=== PATIENT | female | born 1950 | race Caucasian/White ===

== ENCOUNTER → 2018-01-14 | Outpatient (CLI) | payer MEDICARE ==
[~2018-01-14] VITALS: Ht 165.1 cm; Wt 64.1 kg
[~2018-01-14] MED LIST: BUPIVACAINE/PF-EPI 0.5% 1:200K ONE; HYDROcodone/APAP 5/325 TABLET ONE; LACTATED RINGERS 1,000 ML IV SCH; LISI-170 PO; NORCO PO
[2018-01-14 12:34] VITALS: BP 135/80
[2018-01-14 13:46] LABS: ALANINE AMINOTRANSFERASE 18 U/L (12-78); ALBUMIN 3.8 g/dL (3.4-5.0); ANION GAP 11 mmol/L (5-15); CALCIUM 9.2 mg/dL (8.5-10.1); CHLORIDE 109 mmol/L (98-107); CREATININE 0.69 mg/dL (0.55-1.02)
[2018-01-14 13:49] LABS: ALKALINE PHOSPHATASE 60 U/L (45-117); BILIRUBIN,TOTAL 0.5 mg/dL (0.2-1.0); TOTAL PROTEIN 7.5 g/dL (6.4-8.2)
== END | disposition home or self-care (01) ==
LOC: CLISVCS 05:00 → OUT 12:05 → EDSTATUS 13:45
PROVIDERS: ATTEND Orthopaedic Surgery
DX: S52.572A Other intraarticular fracture of lower end of left radius, initial encounter for closed fracture (principal); Z53.9 Procedure and treatment not carried out, unspecified reason; X58.XXXA Exposure to other specified factors, initial encounter; Y93.89 Activity, other specified; Y92.89 Other specified places as the place of occurrence of the external cause; Y99.8 Other external cause status
CPT/HCPCS: 36415; 80053; 93005; 97597; J7120

== ENCOUNTER → 2018-01-14 | Outpatient (CLI) | payer MEDICARE ==
[~2018-01-14] MED LIST changes: -BUPIVACAINE/PF-EPI 0.5% 1:200K ONE; -HYDROcodone/APAP 5/325 TABLET ONE; -LACTATED RINGERS 1,000 ML IV SCH
== END | disposition home or self-care (01) ==
LOC: CFH 14:50
PROVIDERS: ATTEND Orthopaedic Surgery
DX: S52.502A Unspecified fracture of the lower end of left radius, initial encounter for closed fracture (principal); C50.911 Malignant neoplasm of unspecified site of right female breast; Z87.891 Personal history of nicotine dependence; X58.XXXA Exposure to other specified factors, initial encounter; Y93.89 Activity, other specified; Y92.89 Other specified places as the place of occurrence of the external cause; Y99.8 Other external cause status

== ENCOUNTER 2018-01-15 10:58 | Day surgery (SDC) | payer MEDICARE ==
[~2018-01-15] VITALS: Ht 165.1 cm; Wt 64.8 kg
[~2018-01-15 10:58] MED LIST changes: +BUPIVACAINE/PF-EPI 0.5% 1:200K ONE
[2018-01-15 11:23] VITALS: BP 127/79
[2018-01-15] MEDS ORDERED: GABAPENTIN 300 MG CAPSULE PO STA (11:27)
[2018-01-15] MEDS ORDERED: ONDANSETRON ODT 8 MG PO STA (11:27)
[2018-01-15] MEDS ORDERED: LACTATED RINGERS 1,000 ML IV SCH (11:27)
[2018-01-15] MEDS ORDERED: SCOPOLAMINE PATCH, 1.5MG PATCH.TD72 TD STA (11:27)
[2018-01-15] MEDS ORDERED: ACETAMINOPHEN 500 MG TABLET PO STA (11:27)
[2018-01-15] MEDS ORDERED: BUPIVACAINE/PF 0.5% ONE (11:28)
[2018-01-15] MEDS ORDERED: cloniDINE/PF 100 MCG/ML, 10 ML ONE (11:29)
[2018-01-15] MEDS ORDERED: MIDAZOLAM 1 MG/ML, 2ML ONE (11:31)
[2018-01-15] MEDS ORDERED: FENTANYL PF 250 MCG/5ML ONE (11:32)
[2018-01-15] MEDS ORDERED: LIDOCAINE-MPF 2% ,5ML ONE (11:35)
[2018-01-15] MEDS ORDERED: CEFAZOLIN 1,000 MG ONE ×2 (11:35)
[2018-01-15] MEDS ORDERED: DEXAMETHASONE 4 MG/ML, 1ML ONE ×2 (11:36)
[2018-01-15] MEDS ORDERED: WATER-INJECTION,STERILE 10 ML IV ONE (11:36)
[2018-01-15] MEDS ORDERED: LIDOCAINE-MPF 2%, 2ML ONE (11:50)
[2018-01-15] MEDS ORDERED: PROPOFOL 10 MG/ML, 20ML ONE (12:44)
[2018-01-15] MEDS ORDERED: hydrALAzine 20 MG/ML, 1ML IV PRN (13:00)
[2018-01-15] MEDS ORDERED: LORazepam 2 MG/ML, 1ML IVPush PRN (13:00)
[2018-01-15] MEDS ORDERED: HALOPERIDOL 5 MG/ML IV PRN (13:00)
[2018-01-15] MEDS ORDERED: DIPHENHYDRAMINE 50 MG/ML, 1ML IVPush PRN (13:00)
[2018-01-15] MEDS ORDERED: HYDROmorphone 1 MG/ML, 1ML IV PRN (13:00)
[2018-01-15] MEDS ORDERED: OXYcodone 5 MG/5 ML ORAL.SOL UDC PO PRN (13:00)
[2018-01-15] MEDS ORDERED: MEPERIDINE/PF 25MG/0.5ML IVPush PRN (13:00)
[2018-01-15] MEDS ORDERED: LABETALOL 5MG/ML, 20ML IV PRN (13:00)
[2018-01-15] MEDS ORDERED: FENTANYL PF 100 MCG/2ML IV PRN (13:00)
[2018-01-15] MEDS ORDERED: GLYCOPYRROLATE 0.4 MG/2 ML, 2ML ONE (13:11)
[2018-01-15] MEDS ORDERED: ONDANSETRON 2MG/ML, 2ML ONE (13:36)
[2018-01-15] MEDS ORDERED: OXYcodone 5 MG/5 ML ORAL.SOL UDC ONE (14:10)
== END 2018-01-15 15:45 | disposition home or self-care (01) ==
LOC: OUT 10:58
PROVIDERS: ATTEND Orthopaedic Surgery
DX: S52.572A Other intraarticular fracture of lower end of left radius, initial encounter for closed fracture (principal); X58.XXXA Exposure to other specified factors, initial encounter; Y93.9 Activity, unspecified; Y92.89 Other specified places as the place of occurrence of the external cause; Y99.8 Other external cause status; I10 Essential (primary) hypertension; Z88.1 Allergy status to other antibiotic agents
CPT/HCPCS: 25608; 64418; 73110; 76000; C1713; J0690; J0735; J1100; J2250; J2704; J3010; J3490; J7120; Q0162; J2405